=== PATIENT | female | born 1985 | race Caucasian/White ===

== ENCOUNTER 2017-10-01 20:44 | Emergency (ER) | payer SELFPAY ==
[~2017-10-01] VITALS: Ht 162.6 cm; Wt 77.0 kg
[2017-10-01] MEDS ORDERED: PERCOCET 5/325M1 TAB PO (21:36)
[2017-10-01] MEDS ORDERED: AMOXICILLIN500 MG PO (21:36)
[2017-10-01 21:39] VITALS: BP 122/68
== END 2017-10-01 21:45 | disposition home or self-care (01) | DRG 159 ==
LOC: ED 20:44
DX: K02.9 Dental caries, unspecified (principal); K08.89 Other specified disorders of teeth and supporting structures; R51 Headache; H92.03 Otalgia, bilateral

== ENCOUNTER 2021-11-01 23:25 | Emergency (ER) | payer OTHER ==
[~2021-11-01] VITALS: Ht 162.6 cm; Wt 82.0 kg
[~2021-11-01 23:25] MED LIST: AMOXICILLIN500 MG PO; PERCOCET 5/325M1 TAB PO
[2021-11-02 00:26] VITALS: BP 99/62
== END 2021-11-02 00:32 | disposition home or self-care (01) ==
LOC: ED 23:25
DX: S90.821A Blister (nonthermal), right foot, initial encounter (principal); X58.XXXA Exposure to other specified factors, initial encounter; Y92.832 Beach as the place of occurrence of the external cause